=== PATIENT | female | born 1950 | race Caucasian/White ===

== ENCOUNTER 2017-05-10 17:11 | Emergency (ER) | payer OTHER ==
[~2017-05-10] VITALS: Ht 154.9 cm; Wt 60.0 kg
[2017-05-10 17:14] VITALS: Ht 154.9 cm; Wt 60.0 kg
[2017-05-10] MEDS ORDERED: ASPIRIN 325 MG TAB PO STA (20:02)
[2017-05-10] MEDS ORDERED: METO50TA16 PO (20:13)
[2017-05-10] MEDS ORDERED: LOSA50TA6 PO (20:14)
[2017-05-10] MEDS ORDERED: METF500T4 PO (20:15)
[2017-05-10] MEDS ORDERED: AMLO-147 PO (20:15)
--- NOTE | 2017-05-10 20:44 | RADRPT ---
PROCEDURE: XR Chest 1 View. CLINICAL INDICATION: Chest pain TECHNIQUE: AP view of the chest was obtained. COMPARISON: September 10, 2008 FINDINGS: The heart size is within normal limits. Calcified atherosclerosis is noted in the aorta. No consol idations are identified. No pneumothorax is seen. Osseous structures are intact. IMPRESSION: Calcified atherosclerosis in the aorta. Clear lungs. RPTAT: AA .Matthew Man MD, MD Date Time Electronically viewed and signed by .Matthew Man MD, on 05/10/2017 20:44 .P/
[2017-05-10 20:57] LABS: BASOPHIL # 0.1 10^3/ul (0.0-0.1); EOSINOPHILS # 0.1 10^3/ul (0.0-0.5); EOSINOPHILS % 2.1 % (0.0-7.0); HEMATOCRIT 37.5 % (37.0-47.0); HEMOGLOBIN 12.7 g/dl (12.0-16.0); LYMPHOCYTES # 2.5 10^3/ul (0.8-2.9); LYMPHOCYTES % 48.8 % (15.0-51.0); MEAN CORPUSCULAR HEMOGLOBIN 32.2 pg (29.0-33.0); MEAN CORPUSCULAR HGB CONC 33.9 g/dl (32.0-37.0); MEAN CORPUSCULAR VOLUME 95.2 fl (82.0-101.0); MEAN PLATELET VOLUME 9.3 fl (7.4-10.4); MONOCYTE # 0.4 10^3/ul (0.3-0.9); MONOCYTES % 8.5 % (0.0-11.0); NEUTROPHILS % 39.6 % (39.0-77.0); PLATELET COUNT 219 10^3/UL (140-415); RED BLOOD COUNT 3.94 10^6/ul (4.20-5.40); RED CELL DISTRIBUTION WIDTH 12.5 % (11.5-14.5); WHITE BLOOD COUNT 5.2 10^3/ul (4.8-10.8)
[2017-05-10 21:16] LABS: INR 0.89; PARTIAL THROMBOPLASTIN TIME 32.2 Sec (25.0-35.0); PT RATIO 0.9
[2017-05-10 21:19] LABS: ANION GAP 15 (8-16); BLOOD UREA NITROGEN 16 mg/dl (7-20); CALCIUM 9.7 mg/dl (8.4-10.2); CARBON DIOXIDE 25 mmol/L (21-31); CHLORIDE 103 mmol/L (97-110); CREATININE 0.76 mg/dl (0.44-1.00); GLUCOSE 116 mg/dl (70-220); POTASSIUM 4.1 mmol/L (3.5-5.1); SODIUM 139 mmol/L (135-144)
[2017-05-10 21:31] LABS: B-TYPE NATRIURETIC PEPTIDE 50 PG/ML (0-125)
[2017-05-10 21:32] LABS: TROPONIN-I < 0.012 ng/ml (0.00-0.12)
--- NOTE | 2017-05-10 23:16 | ERD ---
ER Documentation Chief Complaint Date/Time DATE: 05/10/17 TIME: 23:10 Chief Complaint pt bib self with c/o chest pain starting last night nonradiating, constant HPI Chest pain for approximately 20 hours on and off that is substernal and described as sharp. Patient took her blood pressure when this happened and she had a systolic of 190 with a diastolic of 90. This worried her. She decided to come the emergency room and get it checked. ROS All systems reviewed and are negative except as per history of present illness. Medications Home Meds Reported Medications Metformin Hcl* (Metformin Hcl*) 500 Mg Tablet, 500 MG PO WITH BREAKFAST, #30 TAB 05/10/17 Amlodipine Besylate* (Amlodipine Besylate*) 10 Mg Tablet, 10 MG PO DAILY, #30 TAB 05/10/17 Losartan Potassium* (Losartan Potassium*) 50 Mg Tablet, 50 MG PO DAILY, TAB 05/10/17 Metoprolol Succinate* (Toprol XL*) 50 Mg Tab.er.24h, 50 MG PO DAILY, #30 TAB PATIENT TAKE EVERY OTHER DAY 05/10/17 Allergies Allergies: Coded Allergies: lisinopril (Verified Allergy, Mild, 05/10/17) PMhx/Soc Medical and Surgical Hx: pt denies Surgical Hx History of Surgery: No Hx Neurological Disorder: No Hx Respiratory Disorders: No Hx Cardiac Disorders: Yes (htn) Hx Psychiatric Problems: No Hx Miscellaneous Medical Probl: Yes (dm) Hx Alcohol Use: No Hx Substance Use: No Hx Tobacco Use: No Smoking Status: Never smoker Physical Exam Vitals Vital Signs Date Time Temp Pulse Resp B/P Pulse Ox O2 Delivery O2 Flow Rate FiO2 05/10/17 17:14 98.3 91 16 174/79 99 Physical Exam Const: [] Head: Atraumatic Eyes: Normal Conjunctiva ENT: Normal External Ears, Nose and Mouth. Neck: Full range of motion..~ No meningismus. Resp: Clear to auscultation bilaterally Cardio: Regular rate and rhythm, no murmurs Abd: Soft, non tender, non distended. Normal bowel sounds Skin: No petechiae or rashes Back: No midline or flank tenderness Ext: No cyanosis, or edema Neur: Awake and alert Psych: Normal Mood and Affect Result Diagram: 05/10/17203405/10/172034 Results 24 hrs Laboratory Tests Test 05/10/17 20:35 White Blood Count 5.210^3/ul Red Blood Count 3.9410^6/ul Hemoglobin 12.7g/dl Hematocrit 37.5% Mean Corpuscular Volume 95.2fl Mean Corpuscular Hemoglobin 32.2pg Mean Corpuscular Hemoglobin Concent 33.9g/dl Red Cell Distribution Width 12.5% Platelet Count 80362^3/UL Mean Platelet Volume 9.3fl Neutrophils % 39.6% Lymphocytes % 48.8% Monocytes % 8.5% Eosinophils % 2.1% Basophils % 1.0% Nucleated Red Blood Cells % 0.0/100WBC Neutrophils # (Manual) 2.010^3/ul Lymphocytes # 2.510^3/ul Monocytes # 0.410^3/ul Eosinophils # 0.110^3/ul Basophils # 0.110^3/ul Nucleated Red Blood Cells # 0.010^3/ul Prothrombin Time 12.0Sec Prothrombin Time Ratio 0.9 INR International Normalized Ratio 0.89 Activated Partial Thromboplast Time 32.2Sec Sodium Level 139mmol/L Potassium Level 4.1mmol/L Chloride Level 103mmol/L Carbon Dioxide Level 25mmol/L Anion Gap 15 Blood Urea Nitrogen 16mg/dl Creatinine 0.76mg/dl Glucose Level 116mg/dl Calcium Level 9.7mg/dl Troponin I < 0.012ng/ml B-Type Natriuretic Peptide 50PG/ML Current Medications Medications (Trade) Dose Ordered Sig/Suly Route PRN Reason Start Time Stop Time Status Last Admin Dose Admin Aspirin (Aspirin) 325 mg ONCE STAT PO 05/10/17 20:02 05/10/17 20:04 DC 05/10/17 20:34 Procedures/MDM Chest pains no signs of cardiac ischemia. Nonischemic EKG as well as negative troponin after 20 hours of chest pain. She was given aspirin. The pain subsided completely in the emergency room without any other therapy. She is asymptomatic I feel count we will discharge her with outpatient management instructions to obtain outpatient echocardiogram through primary care doctor. I have also instructed her to take a diary of her blood pressure and presented to her primary care physician for possible medication adjustment. Discharging with Zantac. classroom monitor interpretation: Normal sinus rhythm without arrhythmia EKG interpretation: Normal sinus rhythm rate of 83, normal axis, no ST or T- wave changes concerning for acute ischemia, mild T-wave inversion in lead V5. Normal intervals. Chest x-ray interpretation: I see no acute process, no wide mediastinum, pneumothorax, no pulmonary edema, no fracture Departure Diagnosis: Primary Impression: Chest pain Condition: Stable DEQUAN HODGE DO May 10, 2017 23:15
[2017-05-10] MEDS ORDERED: RANI150T9 PO (23:17)
[2017-05-10 23:28] VITALS: BP 135/65; PULSE 57; RESP 18
== END 2017-05-10 23:43 | disposition home or self-care (01) ==
LOC: E/R 17:11
DX: R07.2 Precordial pain (principal); E11.9 Type 2 diabetes mellitus without complications; I10 Essential (primary) hypertension; R06.02 Shortness of breath; Z79.84 Long term (current) use of oral hypoglycemic drugs
CPT/HCPCS: 36415; 71010; 80048; 83880; 84484; 85025; 85610; 85730; 93005

== ENCOUNTER 2017-12-08 00:37 | Emergency (ER) | END 2017-12-08 05:01 | disposition home or self-care (01) ==